=== PATIENT | male | born 1975 | race Caucasian/White ===

== ENCOUNTER → 2021-03-04 09:27 | Outpatient (CLI) | payer SELFPAY ==
[2021-03-04 19:21] LABS: Alanine Aminotransferase 26 IU/L (<50); Albumin 4.6 g/dL (3.5-5.0); Albumin Globulin Ratio 1.5 (1.0-2.8); Alkaline Phosphatase 59 U/L (38-126); Aspartate Aminotransferase 27 IU/L (17-59); BUN Creatinine Ratio 19.3 (6-22); Bilirubin Total 0.6 mg/dL (0.2-1.3); Blood Urea Nitrogen 16 mg/dL (9-20); Calcium 9.8 mg/dL (8.4-10.2); Carbon Dioxide 30 mmol/L (22-32); Chloride 102 mmol/L (98-107); Cholesterol 286 mg/dL (140-199); Estimated Glomerular Filt Rate > 60.0 mL/min (>60); Glucose 95 mg/dL (70-100); HDL Cholesterol 40 mg/dL (40-60); HEMOLYSIS < 15 (0-50); LDL Cholesterol Calculated 197 mg/dL (<100); Potassium 4.6 mmol/L (3.4-5.1); Sodium 140 mmol/L (137-145); Total Protein 7.6 g/dL (6.3-8.2); Triglycerides 246 mg/dL (35-150)
[2021-03-04 19:33] LABS: Hematocrit 42.5 % (41-53); Hemoglobin 14.5 g/dL (13.5-17.5); Mean Corpuscular HGB Conc 34.2 % (30-36); Mean Corpuscular Hemoglobin 30.6 PG (26-34); Mean Corpuscular Volume 89.4 fL (80-100); Platelet Count 338 X10^3/uL (150-400); Red Blood Cell Count 4.75 X10^6/uL (4.5-5.9); Red Cell Distribution Width 13.2 % (11.6-14.8); White Blood Cell Count 6.4 X10^3/uL (4.5-11.0)
[2021-03-04 19:39] LABS: Add Manual Diff / Slide Review YES
[2021-03-04 20:09] LABS: Neutrophils Absolute Manual 3456 /uL (3000-5900); RBC Morphology Normal Morphology; Total Cells Counted 100
== END ==
PROVIDERS: PCP Family Medicine; Visit Provider Family Medicine
DX: E78.5 Hyperlipidemia, unspecified (principal); F32.A Depression, unspecified; J45.30 Mild persistent asthma, uncomplicated
CPT/HCPCS: 80053; 80061; 85007; 85025

== ENCOUNTER → 2022-06-04 12:58 | Outpatient (CLI) | payer OTHER, SELFPAY ==
[2022-06-04 19:10] LABS: Add Manual Diff / Slide Review NO; Basophils Absolute Auto 100 /uL (0-100); Basophils Percent Auto 1.2 % (0-2); Eosinophils Absolute Auto 300 /uL (0-450); Eosinophils Percent Auto 4.8 % (2-4); Hematocrit 41.8 % (41-53); Hemoglobin 14.3 g/dL (13.5-17.5); Lymphocytes Absolute Auto 2000 /uL (1100-4500); Lymphocytes Percent Auto 32.8 % (25-40); Mean Corpuscular HGB Conc 34.1 % (30-36); Mean Corpuscular Hemoglobin 30.9 PG (26-34); Mean Corpuscular Volume 90.5 fL (80-100); Monocytes Absolute Auto 400 /uL (0-900); Neutrophils Absolute Auto 3400 /uL (1500-7000); Neutrophils Percent Auto 55.2 % (50-75); Platelet Count 348 X10^3/uL (150-400); Red Blood Cell Count 4.62 X10^6/uL (4.5-5.9); White Blood Cell Count 6.1 X10^3/uL (4.5-11.0)
[2022-06-04 19:19] LABS: Alanine Aminotransferase 30 IU/L (<50); Albumin 4.3 g/dL (3.5-5.0); Albumin Globulin Ratio 1.3 (1.0-2.8); Alkaline Phosphatase 52 U/L (38-126); Aspartate Aminotransferase 35 IU/L (17-59); Bilirubin Total 0.4 mg/dL (0.2-1.3); Blood Urea Nitrogen 20 mg/dL (9-20); Calcium 9.1 mg/dL (8.4-10.2); Carbon Dioxide 30 mmol/L (22-32); Chloride 101 mmol/L (98-107); Cholesterol 212 mg/dL (140-199); Estimated Glomerular Filt Rate > 60 mL/min (>60); Globulin 3.2 g/dL (1.7-4.1); Glucose 93 mg/dL (70-100); HDL Cholesterol 40 mg/dL (40-60); HEMOLYSIS < 15 (0-50); LDL Cholesterol Calculated 143 mg/dL (<100); Potassium 4.7 mmol/L (3.4-5.1); Sodium 139 mmol/L (137-145); Total Protein 7.5 g/dL (6.3-8.2); Triglycerides 145 mg/dL (35-150)
[2022-06-04 19:48] LABS: TSH w/ Reflex to FT4 0.75 uIU/mL (0.47-4.68)
== END ==
PROVIDERS: PCP Family Medicine; Visit Provider Physician Assistant Medical
DX: B00.1 Herpesviral vesicular dermatitis (principal); E78.5 Hyperlipidemia, unspecified; F32.89 Other specified depressive episodes; J45.30 Mild persistent asthma, uncomplicated; J45.40 Moderate persistent asthma, uncomplicated; J45.909 Unspecified asthma, uncomplicated
CPT/HCPCS: 80053; 80061; 84443; 85025

== ENCOUNTER → 2022-08-24 10:41 | Outpatient (CLI) | payer OTHER, SELFPAY ==
[2022-08-24 19:31] LABS: Add Manual Diff / Slide Review NO; Basophils Absolute Auto 100 /uL (0-100); Basophils Percent Auto 1.1 % (0-2); Eosinophils Absolute Auto 600 /uL (0-450); Eosinophils Percent Auto 8.1 % (2-4); Hematocrit 39.5 % (41-53); Hemoglobin 13.7 g/dL (13.5-17.5); Lymphocytes Absolute Auto 2200 /uL (1100-4500); Lymphocytes Percent Auto 29.5 % (25-40); Mean Corpuscular HGB Conc 34.7 % (30-36); Mean Corpuscular Hemoglobin 31.2 PG (26-34); Mean Corpuscular Volume 89.7 fL (80-100); Monocytes Absolute Auto 500 /uL (0-900); Monocytes Percent Auto 6.2 % (3-14); Neutrophils Absolute Auto 4100 /uL (1500-7000); Neutrophils Percent Auto 55.1 % (50-75); Platelet Count 325 X10^3/uL (150-400); Red Blood Cell Count 4.41 X10^6/uL (4.5-5.9); Red Cell Distribution Width 13.7 % (11.6-14.8); White Blood Cell Count 7.3 X10^3/uL (4.5-11.0)
[2022-08-24 19:50] LABS: BUN Creatinine Ratio 17.9 (6-22); Blood Urea Nitrogen 14 mg/dL (9-20); Calcium 9.2 mg/dL (8.4-10.2); Carbon Dioxide 32 mmol/L (22-32); Chloride 102 mmol/L (98-107); Cholesterol 219 mg/dL (140-199); Estimated Glomerular Filt Rate > 60 mL/min (>60); Glucose 99 mg/dL (70-100); HDL Cholesterol 47 mg/dL (40-60); HEMOLYSIS < 15 (0-50); LDL Cholesterol Calculated 134 mg/dL (<100); Potassium 5.1 mmol/L (3.4-5.1); Sodium 139 mmol/L (137-145); Triglycerides 192 mg/dL (35-150)
== END ==
PROVIDERS: PCP Family Medicine; Visit Provider Family Medicine
DX: E78.2 Mixed hyperlipidemia (principal); R40.0 Somnolence
CPT/HCPCS: 80048; 80061; 85025

== ENCOUNTER → 2022-10-01 09:09 | Outpatient (CLI) | payer OTHER, SELFPAY ==
[2022-10-01 19:36] LABS: HEMOLYSIS < 15 (0-50); Iron 64 ug/dL (49-181)
[2022-10-01 19:38] LABS: Cholesterol 181 mg/dL (140-199); HDL Cholesterol 52 mg/dL (40-60); LDL Cholesterol Calculated 100 mg/dL (<100); Triglycerides 147 mg/dL (35-150)
[2022-10-01 19:43] LABS: Add Manual Diff / Slide Review NO; Basophils Absolute Auto 100 /uL (0-100); Basophils Percent Auto 1.1 % (0-2); Eosinophils Absolute Auto 800 /uL (0-450); Eosinophils Percent Auto 9.9 % (2-4); Hematocrit 40.4 % (41-53); Hemoglobin 13.8 g/dL (13.5-17.5); Lymphocytes Absolute Auto 2400 /uL (1100-4500); Lymphocytes Percent Auto 29.4 % (25-40); Mean Corpuscular HGB Conc 34.1 % (30-36); Monocytes Absolute Auto 600 /uL (0-900); Neutrophils Absolute Auto 4300 /uL (1500-7000); Neutrophils Percent Auto 52.6 % (50-75); Platelet Count 317 X10^3/uL (150-400); Red Blood Cell Count 4.44 X10^6/uL (4.5-5.9); White Blood Cell Count 8.2 X10^3/uL (4.5-11.0)
[2022-10-01 19:50] LABS: Percent Iron Saturation 20 % (20-50); Total Iron Binding Capacity 325 ug/dL (261-462); Transferrin 243 mg/dL (206-381)
[2022-10-01 20:23] LABS: Vitamin B12 396 pg/mL (239-931)
== END ==
PROVIDERS: PCP Family Medicine; Visit Provider Family Medicine
DX: D64.9 Anemia, unspecified (principal); E78.2 Mixed hyperlipidemia
CPT/HCPCS: 80061; 82607; 83540; 83550; 85025

== ENCOUNTER 2023-03-09 07:30 | Day surgery (SDC) | payer OTHER, SELFPAY ==
[2023-03-09] VITALS (7 sets, daily range): BP systolic 118–142; BP diastolic 74–100; PULSE 73–93; RESP 10–16; TEMP 36.4–36.7; O2SAT 90–97; BMI 27.2
--- NOTE | 2023-03-09 | PATH_ITS ---
[facility] Accession Number: [id number] No. of containers..02 Tissue . 01 Material submitted: . PART A: colon - DESCENDING COLON POLYP PART B: colon - ASCENDING COLON POLYP . 01 Diagnosis: A. COLON, DESCENDING, POLYP BIOPSY: - TUBULAR ADENOMA -- B. COLON, ASCENDING, POLYP BIOPSY: - BENIGN COLONIC MUCOSA WITH LARGE SUBMUCOSAL FIBROTIC NODULE WITH HISTOLOGIC ELEMENTS SUGGESTIVE OF REMOTE PARASITIC INFECTION. - SEE COMMENT. --- COMMENT: There is large submucosal fibrotic nodule with central nondescript elements, these elements have a thick wall with serration and central necrotic materials. Overall, it is suspicious for parasitic infection, and unable to confirm and classify given the lack of viable fragments. Correlation with patient's history and fecal microbiology test might be helpful for further investigation. -- AFB, and GMS special stains are performed and are negative for mycobacterial and fungal elements. Technical Note: The immunohistochemical stains reported were performed at [facility] ([address], [facility] [address]). They were developed and their performance characteristics determined by [employer]. They have not been cleared or approved by the U.S. Food and Drug Administration, although such approval is not required for analyte-specific reagents of this type. TXN 03/17/2023 1735 [facility] . 01 Electronically signed: . Celina Gagnon MD, Pathologist NPI- [id number] . 01 Gross description: . Part A: DESCENDING COLON POLYP: Received in formalin is 1 fragment(s) of rangel, soft tissue measuring 0.7 x 0.4 x 0.2 cm submitted entirely in 1 cassette(s) Part B: ASCENDING COLON POLYP: Received in formalin are 2 fragment(s) of rangel, soft tissue measuring 0.2 x 0.2 x 0.1 cm to 0.8 x 0.7 x 0.7 cm submitted entirely in 1 cassette(s) /FRANCINE 03/10/2023 2303 [facility] . 01 Pathologist provided ICD-10: Z12.11 . 01 CPT . 490953, 144414, 296156, 067506 Specimen Comment: A courtesy copy of this report has been sent to [phone] Performed at: 01 [facility] [address] [place] [address] [id number] MD Nate Grande MD Phone: [phone]
[2023-03-09] MEDS: LACTATED RINGERS 1,000 ML 150 ML IV (07:50)
--- NOTE | 2023-03-09 08:03 | PM.HP.1 ---
History of Present Illness History of Present Illness Date Patient Seen: 03/09/23 Chief complaint: Colonoscopy Narrative: 47-year-old man here for screening colonoscopy. Father developed colon cancer age 63. No previous colonoscopy. No abdominal concerns unintentional weight loss blood per. PFSH Medical History Recurrent cold sores Screening for prostate cancer Screening for lipid disorders Screening for diabetes mellitus Encounter for assessment of STD exposure Former smoker Penile lesion Encounter for general adult medical examination w/o abnormal findings Encounter for smoking cessation counseling Social History household members: none Smoking Status: Former smoker alcohol intake: never Meds Home Medications and Allergies Home Medications Medication Instructions Recorded Confirmed Type sodium,potassium,mag sulfates 17.5 See Rx Instructions PO .COMPLEX 12/17/22 03/09/23 Rx gram-3.13 gram-1.6 gram oral soln #354 mL (Suprep Bowel Prep Kit) atorvastatin 10 mg tablet 10 mg PO QPM #90 tabs 01/04/23 03/09/23 Rx escitalopram oxalate 20 mg tablet See Rx Instructions .Route 01/04/23 03/09/23 Rx .COMPLEX #90 tabs albuterol sulfate 5 mg/mL(0.5 %) 5 mg inhalation Q6H PRN asthma 01/06/23 03/09/23 Rx solution for nebulization #100 mL montelukast 10 mg tablet 10 mg PO DAILY #90 tabs 01/07/23 03/09/23 Rx fluticasone propionate 100 2 inh inhalation BID #60 ea 02/08/23 03/09/23 Rx mcg/actuation blister powder for inhalation (Flovent Diskus) albuterol sulfate 90 mcg/actuation 2 puff inhalation Q6H PRN 02/10/23 03/09/23 Rx aerosol inhaler shortness of breath or wheezing #1 ea fluticasone 250 mcg-salmeterol 50 1 inh inhalation BID #60 ea 02/10/23 03/09/23 Rx mcg/dose blistr powdr for inhalation (Advair Diskus) Allergies Allergy/AdvReac Type Severity Reaction Status Date / Time No Known Drug Allergies Allergy Verified 01/20/23 15:33 Exam Vital Signs (past 8 hours): - 03/09/23 07:37 Temperature 98.1 F Pulse Rate 93 H Respiratory Rate 16 Blood Pressure 142/100 H Pulse Oximetry 95 Oxygen Delivery Method Room Air Oxygen Delivery Method Room Air Narrative Exam Narrative: General adult man alert oriented no acute distress Chest nonlabored respiration Extremities warm well perfused Assessment & Plan Assessment and plan (1) Family history of colon cancer: Status: Acute Assessment & Plan narrative: The patient requires colorectal screening and colonoscopy is recommended. Technical details were discussed. Risks, benefits, alternatives explained. Risks including but not limited to myocardial infarction, aspiration, bleeding, pain, missed lesion, incomplete examination, need for further radiographic studies, colonic perforation, and need for major abdominal surgery were discussed. All questions were answered to their satisfaction, and they are in agreement with this plan.
--- NOTE | 2023-03-09 08:06 | P.OP.COLON_ITS ---
Operative Date/Time/Diagnoses Date of procedure: 03/09/23 Time of procedure: 08:06 Pre-op diagnosis: Family history of colon cancer Post-op diagnosis: other (Colonic polyps x2) Procedure & Clinicians Study performed: Colonoscopy and polypectomy. Same procedure as scheduled: Yes Indications: Colorectal screening Family history of colon cancer Surgeon: Bennie Newton Procedure Notes Procedure in detail: The history and physical was performed/updated and the patient is ASA class is 2. The procedure was discussed in detail with the patient. Potential risks complications including infection, bleeding, missed diagnosis, perforation, need for surgery, and were explained. Their questions were answered and informed consent was obtained. Patient was brought to the procedure room and placed standard monitoring equipment. The patient's vital signs were monitored continuously throughout the entire procedure. Prior to starting time-out was performed. The patient was placed in the left lateral recumbent position. Procedural sedation was administered by anesthesia. Examination began with a thorough inspection of the perianal area there was no evidence of fissures, fistulae, external hemorrhoids or cutaneous malignancy. The colonoscopy scope was then placed into the anal canal and was advanced to the cecum, which was identified by the ileocecal valve, the appendiceal orifice and the confluence of the taenia. The scope was then slowly withdrawn examining colon thoroughly in all directions, irrigating it of any residual stool. The scope was retroflexed within the rectum The patient tolerated the procedure well. They will be discharged once criteria are met. The prep was of good/excellent quality. The withdrawl time was 7 minutes. FINDINGS * Descending colon 3 mm polyp removed with biopsy forceps * Ascending colon 8 mm polyp which appears to have some calcification associated with it removed with hot snare after cold snare was unsuccessful. * Rectum grade 1 internal hemorrhoids Specimen(s): other (Ascending and descending colonic polyps) Impression: Colonic polyps x2 Post-procedure Plan for aftercare: Follow-up is dependent on pathology findings, at minimum needs repeat 5 years Disposition: same day surgery
[2023-03-09] MEDS: ALBUTEROL 2.5 MG/3 ML NEB (ADULT) INH (08:52)
== END 2023-03-09 09:48 | disposition home or self-care (01) ==
PROVIDERS: PCP Family Medicine; Referring Provider Surgery; Visit Provider Surgery
PROC: 0DJD8ZZ Inspection of Lower Intestinal Tract, Via Natural or Artificial Opening Endoscopic (ICD-10-PCS; CPT 45378; principal; 2023-03-09 08:15)
DX: Z12.11 Encounter for screening for malignant neoplasm of colon (principal); Z80.0 Family history of malignant neoplasm of digestive organs; K64.0 First degree hemorrhoids; D12.4 Benign neoplasm of descending colon
CPT/HCPCS: 45385; 45380; J2704; J7613

== ENCOUNTER 2023-05-02 15:00 | Observation (INO) | payer OTHER, SELFPAY ==
[2023-05-02] VITALS (14 sets, daily range): BP systolic 91–139; BP diastolic 55–69; PULSE 84–106; RESP 18–26; TEMP 36.4–37.2; O2SAT 88–97; BMI 27.2
--- NOTE | 2023-05-02 15:10 | DI.RAD.S_ITS ---
PROCEDURE: XR CHEST 1V INDICATIONS: Short of breath, asthma, +wheeze, recent fever, ? covid TECHNIQUE: One view of the chest was acquired. COMPARISON: [facility] ([place]), CR, XR CHEST 2V, 01/07/2023, 10:22. FINDINGS: Surgical changes and devices: None. Lungs and pleura: On this semiupright portable chest examination, no large pneumothorax or large pleural effusions are seen. No focal infiltrates are seen. Mediastinum: Mediastinal contours appear normal. Heart size is normal. Bones and chest wall: No suspicious bony lesions. There is a chronic fracture of the right mid clavicle. Overlying soft tissues appear unremarkable. IMPRESSION: No acute cardiopulmonary abnormality is seen. No focal infiltrates are seen. If there is clinical concern for a developing pulmonary process, a short-term followup chest series (with PA and lateral views, performed in deep inspiration) is suggested for further evaluation. Stable right mid clavicle fracture. Dictated by: Huang Vizcarra M.D. on 05/02/2023 at 14:37 Approved by: Huang Vizcarra M.D. on 05/02/2023 at 14:38
[2023-05-02] MEDS: ALBUTEROL 2.5 MG/3 ML NEB (ADULT) 20 MG INH (15:15)
--- NOTE | 2023-05-02 15:17 | ED_ITS ---
HPI - SOB/Dyspnea General Chief Complaint: Shortness of Breath/Dyspnea Stated Complaint: SOB Hx Asthma Time Seen by Provider: 05/02/23 15:03 Source: patient, EMS, RN notes reviewed and old records reviewed Mode of arrival: EMS Limitations: no limitations History of Present Illness HPI Narrative: 47-year-old male with history of dyslipidemia, asthma on Advair daily and montelukast. Patient states he has been doing well a couple days ago he started to get fever, cough and had significant shortness of breath that started today. Patient states he would 1 out of his albuterol inhaler but did have his nebulizer. He tried a nebulizer this morning without any improvement. He does use his Advair every day. Patient is also on montelukast daily. Has had 1 prior hospitalization in the fall for asthma exacerbation has never been intubated or required BiPAP. Patient states he had fevers up to 102 this morning. Nasal congestion, some headache, no chest pain or pressure but felt short of breath. He received 40 mg of dexamethasone, Atrovent and 2 albuterol nebs EN route as well as Zofran. Patient states he feels much improved but continues to have wheeze on examination. Patient and airlift state that his work of breathing has significantly improved. Patient is also requiring O2 4 L for airlift still after interventions. Patient states no nausea or vomiting, no diarrhea or constipation, no urinary symptoms. No new swelling in extremities. Denies any allergies to medications. No prior surgeries. Quit smoking in 2019. Occasional alcohol, does use marijuana. Denies recreational drugs otherwise. Lives in [facility]. Related Data Previous Rx's Medication Instructions Recorded escitalopram oxalate 20 mg tablet See Rx Instructions .Route 01/04/23 .COMPLEX #90 tabs albuterol sulfate 5 mg/mL(0.5 %) 5 mg inhalation Q6H PRN asthma 01/06/23 solution for nebulization #100 mL montelukast 10 mg tablet 10 mg PO DAILY #90 tabs 01/07/23 fluticasone propionate 100 2 inh inhalation BID #60 ea 02/08/23 mcg/actuation blister powder for inhalation (Flovent Diskus) albuterol sulfate 90 mcg/actuation 2 puff inhalation Q6H PRN 02/10/23 aerosol inhaler shortness of breath or wheezing #1 ea fluticasone 250 mcg-salmeterol 50 1 inh inhalation BID #60 ea 02/10/23 mcg/dose blistr powdr for inhalation (Advair Diskus) atorvastatin 10 mg tablet 10 mg PO QPM #90 tabs 03/12/23 Allergies Allergy/AdvReac Type Severity Reaction Status Date / Time No Known Drug Allergies Allergy Verified 01/20/23 15:33 Review of Systems Review of Systems ROS Unobtainable: All systems reviewed & are unremarkable except as noted in HPI and below Patient History Medical History Recurrent cold sores Screening for prostate cancer Screening for lipid disorders Screening for diabetes mellitus Encounter for assessment of STD exposure Former smoker Penile lesion Encounter for general adult medical examination w/o abnormal findings Encounter for smoking cessation counseling Social History household members: none Smoking Status: Former smoker alcohol intake: never Smoking Status: Former smoker Substance Use Type: does not use Exam Narrative Exam Narrative: GEN: well nourished male, alert and oriented x 3, patient appears to be in moderate distress. HEENT: Atraumatic, pupils are equal round reactive to light, extraocular movements are intact, nares congestion bilaterally, there is no conjunctival pallor. Throat is clear without any exudates, erythema, tonsillar enlargement or uvular deviation HEART: Regular rate and rhythm without murmur, clicks, rubs. Pulses are equal in upper and lower extremities LUNGS:Lungs bilateral inspiratory and expiratory wheezes, p mild tachypnea. Atient does have good air movement, no crackles or rales noted. No rhonchi. Patient can speak in full sentences. Does have nasal cannula in place on 4 L currently. Mild RAUL use but no intercostal or subcostal. ABD:bowel sounds normal, soft, non-tender, no guarding, rebound, rigidity, no masses noted, no hepatosplenomegaly :No CVA tenderness MSCL: Non-tender, no muscle atrophy, muscles strength 5/5 upper and lower extremities, full range of motion, normal gait NEURO:CN 2-12 intact, sensation normal SKIN: No rash, erythema or other skin changes noted. Initial Vital Signs Initial Vital Signs: Vital Signs Temperature 98 F 05/02/23 15:11 Pulse Rate 100 H 05/02/23 15:11 Respiratory Rate 26 H 05/02/23 15:11 Blood Pressure 126/62 05/02/23 15:11 Pulse Oximetry 94 05/02/23 15:11 Oxygen Delivery Method Nasal Cannula 05/02/23 15:11 Oxygen Flow Rate 4 05/02/23 15:11 Course Orders Ordered: ED Orders 05/02/23 13:10 Respiratory Panel (Film Array) Stat 05/02/23 15:10 Chest [XR chest 1V] Stat 05/02/23 15:30 BNP [NT-proBNP (BNP-Adult 18+)] Stat CBC Auto Diff [Complete Blood Count AUTO DIFF] Stat CMP [Comprehensive Metabolic Panel] Stat Lipase Stat Troponin & CK Cardiac Panel Stat Magnesium Sulfate (Magnesium Sulfate) 2 gm in 50 mls @ 25 mls/hr IV NOW ONE Stop: 05/02/23 19:07 Last Admin: 05/02/23 17:22 Dose: 25 mls/hr Discontinued Medications Albuterol (Albuterol 2.5 Mg/3 Ml Neb (Adult)) 20 mg INH NOW ONE Stop: 05/02/23 15:11 Last Admin: 05/02/23 15:15 Dose: 20 mg Documented By: COBY Sodium Chloride (Normal Saline 0.9%) 1,000 mls @ 1,000 mls/hr IV BOLUS ONE Stop: 05/02/23 16:09 Last Infusion: 05/02/23 16:27 Dose: Infused Documented By: Admin: 05/02/23 15:27 Dose: 1,000 mls/hr Documented By: LIANA Methylprednisolone (Methylprednisolone 125 Mg/2 Ml Vial) 125 mg IV NOW ONE Stop: 05/02/23 15:11 Last Admin: 05/02/23 15:27 Dose: 125 mg Documented By: LIANA Vital Signs Vital signs: Vital Signs - 8 hr 05/02/23 15:11 05/02/23 15:14 05/02/23 15:21 Temperature 98 F Pulse Rate 100 H 101 H Respiratory Rate 26 H Blood Pressure 126/62 Pulse Oximetry 94 92 93 Oxygen Delivery Method Nasal Cannula Nasal Cannula Oxygen Flow Rate 4 3 05/02/23 15:30 05/02/23 15:34 05/02/23 15:34 Temperature Pulse Rate 95 H 101 H Respiratory Rate Blood Pressure 91/58 L Pulse Oximetry 97 95 Oxygen Delivery Method Oxygen Flow Rate 05/02/23 15:59 05/02/23 16:00 05/02/23 16:00 Temperature Pulse Rate 101 H 103 H Respiratory Rate Blood Pressure 125/60 Pulse Oximetry 96 96 Oxygen Delivery Method Nasal Cannula Oxygen Flow Rate 4 05/02/23 16:30 05/02/23 16:30 05/02/23 16:54 Temperature Pulse Rate 106 H Respiratory Rate Blood Pressure 139/61 Pulse Oximetry 93 88 L Oxygen Delivery Method Room Air Oxygen Flow Rate 05/02/23 16:55 Temperature Pulse Rate Respiratory Rate Blood Pressure Pulse Oximetry 92 Oxygen Delivery Method Nasal Cannula Oxygen Flow Rate 2 MDM - SOB/Dyspnea Lab Data 05/02/23 15:30 05/02/23 15:30 Labs: Lab Results 05/02/23 05/02/23 Range/Units 13:10 15:30 WBC 7.5 (4.5-11.0) X10^3/uL RBC 4.20 L (4.5-5.9) X10^6/uL Hgb 13.0 L (13.5-17.5) g/dL Hct 37.7 L (41-53) % MCV 89.7 (80-100) fL MCH 30.9 (26-34) PG MCHC 34.5 (30-36) % RDW 14.5 (11.6-14.8) % Plt Count 226 (150-400) X10^3/uL Neut % (Auto) 92.0 H (50-75) % Lymph % (Auto) 3.6 L (25-40) % [place] % (Auto) 3.7 (3-14) % Eos % (Auto) 0.1 L (2-4) % Baso % (Auto) 0.6 (0-2) % Neut # (Auto) 6900 (2351-3516) /uL Lymph # (Auto) 300 L (4243-9683) /uL [place] # (Auto) 300 (0-900) /uL Eos # (Auto) 0 (0-450) /uL Baso # (Auto) 0 (0-100) /uL Sodium 137 (137-145) mmol/L Potassium 3.4 (3.4-5.1) mmol/L Chloride 101 (98-107) mmol/L Carbon Dioxide 23 (22-32) mmol/L BUN 16 (9-20) mg/dL Creatinine 0.68 (0.66-1.25) mg/dL Estimated GFR > 60 (>60) mL/min BUN/Creatinine Ratio 23.5 H (6-22) Glucose 130 H (70-100) mg/dL Calcium 9.3 (8.4-10.2) mg/dL Total Bilirubin 0.6 (0.2-1.3) mg/dL AST 44 (17-59) IU/L ALT 43 (<50) IU/L Alkaline Phosphatase 52 (38-126) U/L Total Creatine Kinase 282 H (55-170) U/L Troponin I < 0.012 (0.01-0.034) ng/mL NT-Pro-B Natriuret Pep 115 (<125) pg/mL Total Protein 7.9 (6.3-8.2) g/dL Albumin 4.6 (3.5-5.0) g/dL Globulin 3.3 (1.7-4.1) g/dL Albumin/Globulin Ratio 1.4 (1.0-2.8) Lipase 41 (23-300) U/L Chlamy pneumoniae PCR Not detected (Not Detect) Adenovirus (PCR) Not detected (Not Detect) B.parapertussis DNA PCR Not detected (Not Detecte) Coronavirus OC43 (PCR) Not detected (Not Detect) Coronavirus HKU1 (PCR) Not detected (Not Detect) Coronavirus 229E (PCR) Not detected (Not Detect) SARS-CoV-2 (PCR) Not detected (Not Detecte) Coronavirus NL63 (PCR) Not detected (Not Detect) Human Metapneumovir PCR Not detected (Not Detect) Influenza Type A (PCR) Not detected (Not Detect) Influenza Type B (PCR) Not detected (Not Detect) M. pneumoniae (PCR) Not detected (Not Detect) Parainfluenza 1 (PCR) Not detected (Not Detect) Parainfluenza 2 (PCR) Not detected (Not Detect) Parainfluenza 3 (PCR) Not detected (Not Detect) Parainfluenza 4 (PCR) Not detected (Not Detect) RSV (PCR) Not detected (Not Detect) Entero/Rhino (PCR) Detected H (Not Detect) Imaging Data Chest x-ray: Radiologist's Impression: [address] [address] XRay Report Signed Patient: Lighthill,Morris Chapel MR#: [id number] : 1975 Acct:[id number] Age/Sex: 47 / M Date of Service: 05/02/23 Loc: ED Accession Number: [id number] Procedure: XR chest 1V Ordering Provider: Hannah Dc D.O. PROCEDURE: XR CHEST 1V INDICATIONS: Short of breath, asthma, +wheeze, recent fever, ? covid TECHNIQUE: One view of the chest was acquired. COMPARISON: [facility] ([place]), CR, XR CHEST 2V, 01/07/2023, 10:22. FINDINGS: Surgical changes and devices: None. Lungs and pleura: On this semiupright portable chest examination, no large pneumothorax or large pleural effusions are seen. No focal infiltrates are seen. Mediastinum: Mediastinal contours appear normal. Heart size is normal. Bones and chest wall: No suspicious bony lesions. There is a chronic fracture of the right mid clavicle. Overlying soft tissues appear unremarkable. IMPRESSION: No acute cardiopulmonary abnormality is seen. No focal infiltrates are seen. If there is clinical concern for a developing pulmonary process, a short-term followup chest series (with PA and lateral views, performed in deep inspiration) is suggested for further evaluation. Stable right mid clavicle fracture. Dictated by: Huang Vizcarra M.D. on 05/02/2023 at 14:37 Approved by: Huang Vizcarra M.D. on 05/02/2023 at 14:38 MDM Narrative Medical decision making narrative: 47-year-old male with history of asthma patient has had recent viral syndrome with fevers, nasal congestion and sudden onset of shortness of breath today. Patient is quite wheezy on examination. Suspect patient has viral syndrome causing asthma exacerbation. Patient received dexamethasone and 1 Atrovent 2 albuterol EN route. He is still quite wheezy also still O2 dependent. His work of breathing has performed significantly according to airlift as well as the patient himself. He still slightly tachycardic and tachypneic. Plan for Solu-Medrol 125 mg, 20 mg of albuterol and recheck Labs white count hemoglobin of 13 consistent with priors, platelet 226 with leftward shift. Chest x-ray no acute change EKG Respiratory panel positive for enter/rhinovirus. Patient had 20 mg albuterol, patient wheeze has since resolved. Work of breathing continues to be improved. After immediately turned off was 92% but quickly dip down to 88%. Spoke with Dr. Walter who accepts for admission. On recheck patient is a bit of mild wheeze again. His work of breathing has not increased he still continues to feel improved but is requiring at least 2 to 3 L nasal cannula. We will give dose of Mag 2 g. Plan for albuterol/Atrovent regular intervals. Critical Care Time Critical Care Time Critical Care Time: Yes Total Critical Care Time: 25 Attestation: The high probability of a clinically significant, sudden or life threatening deterioration of the [cardiac, pulm] system(s) required my full and direct attention, intervention and personal management. The aggregate critical care time was [] minutes. This time is in addition to time spent performing reported procedures but includes the following: [x] Data Review and interpretation [x] Patient assessment and monitoring of vital signs [x] Documentation [x] Medication orders and management Discharge Plan Departure Patient Disposition: Admitted as Observation Clinical Impression: Enterovirus infection, Acute asthma exacerbation, Acute hypoxemic respiratory failure Admit Date/Time: 05/02/23 17:04 Admit Provider: Mikie Walter
[2023-05-02] MEDS: SODIUM CHLORIDE 0.9% 1,000 ML 1000 ML IV (15:27)
[2023-05-02] MEDS: methylPREDNISolone 125 MG/2 ML VIAL IV (15:27)
[2023-05-02 15:41] LABS: Add Manual Diff / Slide Review NO; Basophils Absolute Auto 0 /uL (0-100); Basophils Percent Auto 0.6 % (0-2); Eosinophils Absolute Auto 0 /uL (0-450); Eosinophils Percent Auto 0.1 % (2-4); Hematocrit 37.7 % (41-53); Lymphocytes Absolute Auto 300 /uL (1100-4500); Lymphocytes Percent Auto 3.6 % (25-40); Mean Corpuscular HGB Conc 34.5 % (30-36); Mean Corpuscular Hemoglobin 30.9 PG (26-34); Mean Corpuscular Volume 89.7 fL (80-100); Monocytes Absolute Auto 300 /uL (0-900); Monocytes Percent Auto 3.7 % (3-14); Neutrophils Absolute Auto 6900 /uL (1500-7000); Platelet Count 226 X10^3/uL (150-400); Red Cell Distribution Width 14.5 % (11.6-14.8); White Blood Cell Count 7.5 X10^3/uL (4.5-11.0)
[2023-05-02 15:58] LABS: Alanine Aminotransferase 43 IU/L (<50); Albumin 4.6 g/dL (3.5-5.0); Albumin Globulin Ratio 1.4 (1.0-2.8); Alkaline Phosphatase 52 U/L (38-126); Aspartate Aminotransferase 44 IU/L (17-59); BUN Creatinine Ratio 23.5 (6-22); Bilirubin Total 0.6 mg/dL (0.2-1.3); Blood Urea Nitrogen 16 mg/dL (9-20); Calcium 9.3 mg/dL (8.4-10.2); Carbon Dioxide 23 mmol/L (22-32); Chloride 101 mmol/L (98-107); Creatine Kinase 282 U/L (55-170); Estimated Glomerular Filt Rate > 60 mL/min (>60); Globulin 3.3 g/dL (1.7-4.1); Glucose 130 mg/dL (70-100); HEMOLYSIS < 15 (0-50); Lipase 41 U/L (23-300); Potassium 3.4 mmol/L (3.4-5.1); Sodium 137 mmol/L (137-145); Total Protein 7.9 g/dL (6.3-8.2)
[2023-05-02 16:09] LABS: Adenovirus Not Detected (Not Detect); B. parapertussis Not Detected (Not Detecte); Bordetella pertussis Not Detected (Not Detect); Chlamydophila pneumoniae Not Detected (Not Detect); Coronavirus 229E Not Detected (Not Detect); Coronavirus HKU1 Not Detected (Not Detect); Coronavirus NL 63 Not Detected (Not Detect); Coronavirus OC43 Not Detected (Not Detect); Human Metapneumovirus Not Detected (Not Detect); Human Rhinovirus/Enterovirus Detected (Not Detect); Influenza A Not Detected (Not Detect); Influenza B Not Detected (Not Detect); Mycoplasma pneumoniae Not Detected (Not Detect); Parainfluenza Virus 1 Not Detected (Not Detect); Parainfluenza Virus 2 Not Detected (Not Detect); Parainfluenza Virus 3 Not Detected (Not Detect); Parainfluenza Virus 4 Not Detected (Not Detect); Respiratory Syncytial Virus Not Detected (Not Detect); SARS- CoV-2 Not Detected (Not Detecte)
[2023-05-02 16:10] LABS: NT-proBNP (BNP-Adult 18+) 115 pg/mL (<125); Troponin I < 0.012 ng/mL (0.01-0.034)
--- NOTE | 2023-05-02 17:06 | PC.NURSE ---
Bilateral inpiratory and expiratory wheezing has improved s/p neb tx. Pt able to speak in full sentences. Pt still requiring 2L NC. Pt o2 sat dropped to 88% while on RA trial. Pleaced back on 2L NC and pt now sating 92%. RR 22
[2023-05-02] MEDS: MAGNESIUM SULFATE 2 GM/50 ML PIGGYBACK IV (17:22)
--- NOTE | 2023-05-02 18:33 | P.HP_ITS ---
History of Present Illness History of Present Illness Date Patient Seen: 05/02/23 Chief complaint: SOB Hx Asthma Narrative: Pt is 47 yo male former smoker with hx asthma, dyslipidemia presents with difficulty breathing and wheezing x 24 hrs. Symptoms got worse this morning. No fevers or chills. Cough is non-productive. He ran out of his rescue inhaler but used his neb at home this AM without relief. He is compliant with Advair abd Singulair. At baseline poor control with requiring alb inhaler 4-6 times a day. He has never been intubated. He was hospitalized for a day last January for asthma exacerbation while traveling in [place]. He has had mild asthma since childhood but with sig worsening over the past 5 years. 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 Prior to Ed sats in mid 80's. Currently on HFNC. Received alb 20 mg and Solumedrol in ED and had been given dex by medics. Labs wnl except + PCR for entero/rhino virus. Neg COVID PCR. CXR personally reviewed and without infiltrate. He quit smoking in 2019, prev 1 ppd x 20 yrs. [facility] Medical History Recurrent cold sores Screening for prostate cancer Screening for lipid disorders Screening for diabetes mellitus Encounter for assessment of STD exposure Former smoker Penile lesion Encounter for general adult medical examination w/o abnormal findings Encounter for smoking cessation counseling Social History household members: none Smoking Status: Former smoker alcohol intake: never Meds Home Medications and Allergies Home Medications Medication Instructions Recorded Confirmed Type escitalopram oxalate 20 mg tablet See Rx Instructions .Route 01/04/23 05/02/23 Rx .COMPLEX #90 tabs albuterol sulfate 5 mg/mL(0.5 %) 5 mg inhalation Q6H PRN asthma 01/06/23 05/02/23 Rx solution for nebulization #100 mL montelukast 10 mg tablet 10 mg PO DAILY #90 tabs 01/07/23 05/02/23 Rx fluticasone propionate 100 2 inh inhalation BID #60 ea 02/08/23 05/02/23 Rx mcg/actuation blister powder for inhalation (Flovent Diskus) albuterol sulfate 90 mcg/actuation 2 puff inhalation Q6H PRN 02/10/23 05/02/23 Rx aerosol inhaler shortness of breath or wheezing #1 ea fluticasone 250 mcg-salmeterol 50 1 inh inhalation BID #60 ea 02/10/23 05/02/23 Rx mcg/dose blistr powdr for inhalation (Advair Diskus) atorvastatin 10 mg tablet 10 mg PO QPM #90 tabs 03/12/23 05/02/23 Rx Allergies Allergy/AdvReac Type Severity Reaction Status Date / Time No Known Drug Allergies Allergy Verified 01/20/23 15:33 Exam Vital Signs (past 8 hours): - 05/02/23 15:11 05/02/23 15:14 05/02/23 15:21 Temperature 98 F Pulse Rate 100 H 101 H Respiratory Rate 26 H Blood Pressure 126/62 Pulse Oximetry 94 92 93 Oxygen Delivery Method Nasal Cannula Nasal Cannula Oxygen Flow Rate 4 3 05/02/23 15:30 05/02/23 15:34 05/02/23 15:34 Temperature Pulse Rate 95 H 101 H Respiratory Rate Blood Pressure 91/58 L Pulse Oximetry 97 95 Oxygen Delivery Method Oxygen Flow Rate 05/02/23 15:59 05/02/23 16:00 05/02/23 16:00 Temperature Pulse Rate 101 H 103 H Respiratory Rate Blood Pressure 125/60 Pulse Oximetry 96 96 Oxygen Delivery Method Nasal Cannula Oxygen Flow Rate 4 05/02/23 16:30 05/02/23 16:30 05/02/23 16:54 Temperature Pulse Rate 106 H Respiratory Rate Blood Pressure 139/61 Pulse Oximetry 93 88 L Oxygen Delivery Method Room Air Oxygen Flow Rate 05/02/23 16:55 05/02/23 18:15 05/02/23 18:20 Temperature 99.0 F Pulse Rate 101 H Respiratory Rate 19 Blood Pressure 116/69 Pulse Oximetry 92 92 Oxygen Delivery Method Nasal Cannula Nasal Cannula Oxygen Flow Rate 2 Oxygen Delivery Method Nasal Cannula Oxygen Flow Rate 2 Narrative Exam Narrative: Gen: currently after ED treatment alert, comfortable on HFNC HEENT: anicteric Neck: no enlarged LN Lungs: able to speak full sentences, bilat insp and exp wheeze CV: regular, no murmur Abd: soft, no HSM Ext: no edema Neuro: mentating well, speech and affect nl Objective Labs 05/02/23 15:30 05/02/23 15:30 Labs: Laboratory Results - last 24 hr 05/02/23 05/02/23 13:10 15:30 WBC 7.5 RBC 4.20 L Hgb 13.0 L Hct 37.7 L MCV 89.7 MCH 30.9 MCHC 34.5 RDW 14.5 Plt Count 226 Neut % (Auto) 92.0 H Lymph % (Auto) 3.6 L Callahan % (Auto) 3.7 Eos % (Auto) 0.1 L Baso % (Auto) 0.6 Neut # (Auto) 6900 Lymph # (Auto) 300 L Callahan # (Auto) 300 Eos # (Auto) 0 Baso # (Auto) 0 Sodium 137 Potassium 3.4 Chloride 101 Carbon Dioxide 23 BUN 16 Creatinine 0.68 Estimated GFR > 60 BUN/Creatinine Ratio 23.5 H Glucose 130 H Calcium 9.3 Total Bilirubin 0.6 AST 44 ALT 43 Alkaline Phosphatase 52 Total Creatine Kinase 282 H Troponin I < 0.012 NT-Pro-B Natriuret Pep 115 Total Protein 7.9 Albumin 4.6 Globulin 3.3 Albumin/Globulin Ratio 1.4 Lipase 41 Chlamy pneumoniae PCR Not detected Adenovirus (PCR) Not detected B.parapertussis DNA PCR Not detected Coronavirus OC43 (PCR) Not detected Coronavirus HKU1 (PCR) Not detected Coronavirus 229E (PCR) Not detected SARS-CoV-2 (PCR) Not detected Coronavirus NL63 (PCR) Not detected Human Metapneumovir PCR Not detected Influenza Type A (PCR) Not detected Influenza Type B (PCR) Not detected M. pneumoniae (PCR) Not detected Parainfluenza 1 (PCR) Not detected Parainfluenza 2 (PCR) Not detected Parainfluenza 3 (PCR) Not detected Parainfluenza 4 (PCR) Not detected RSV (PCR) Not detected Entero/Rhino (PCR) Detected H Assessment & Plan Assessment & Plan narrative: 1. Acute asthma exacerbation -+ entero/rhino virus PCR; no pneumonia on x-ray -cont HFNC -RT consult -Duoneb q4HWA -start prednisone 60 mg qd in AM 2. Dyslipidemia -cont atorvastatin 3. Depression/nxiety -cont escitalopram DVT prevention: enoxaprin
[2023-05-02] MEDS: ALBUTEROL/IPRATROPIUM 3 ML AMPUL INH (19:22)
[2023-05-02] MEDS: SODIUM CHLORIDE 0.9% FLUSH 10 ML IV (20:26)
[2023-05-02] MEDS: ATORVASTATIN 20 MG TABLET 10 MG PO (20:26)
[2023-05-03] VITALS (7 sets, daily range): BP systolic 110–115; BP diastolic 62–68; PULSE 78–95; RESP 16–22; TEMP 36.6–37; O2SAT 91–94
[2023-05-03] MEDS: ALBUTEROL/IPRATROPIUM 3 ML AMPUL INH ×3 (00:26→11:41)
[2023-05-03] MEDS: BUDESONIDE 0.5 MG/2 ML NEB INH (07:39)
[2023-05-03] MEDS: ENOXAPARIN 40 MG/0.4 ML SYRINGE SUBCUT (08:21)
[2023-05-03] MEDS: MONTELUKAST 10 MG TABLET PO (08:21)
[2023-05-03] MEDS: ESCITALOPRAM 10 MG TABLET PO (08:21)
[2023-05-03] MEDS: SODIUM CHLORIDE 0.9% FLUSH 10 ML IV (08:21)
[2023-05-03] MEDS: predniSONE 20 MG TABLET 60 MG PO (08:21)
--- NOTE | 2023-05-03 09:38 | P.DS_ITS ---
History of Present Illness History of Present Illness Date Patient Seen: 05/03/23 Time Patient Seen: 09:38 Chief complaint: SOB Hx Asthma Narrative: Per admitting provider, Pt is 47 yo male former smoker with hx asthma, dyslipidemia presents with difficulty breathing and wheezing x 24 hrs. Symptoms got worse this morning. No fevers or chills. Cough is non-productive. He ran out of his rescue inhaler but used his neb at home this AM without relief. He is compliant with Advair abd Singulair. At baseline poor control with requiring alb inhaler 4-6 times a day. He has never been intubated. He was hospitalized for a day last January for asthma exacerbation while traveling in [place]. He has had mild asthma since childhood but with sig worsening over the past 5 years. 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 Prior to Ed sats in mid 80's. Currently on HFNC. Received alb 20 mg and Solumedrol in ED and had been given dex by medics. Labs wnl except + PCR for entero/rhino virus. Neg COVID PCR. CXR personally reviewed and without infiltrate. He quit smoking in 2019, prev 1 ppd x 20 yrs. Discharge Providers Provider Date of admission: 05/02/23 17:04 Discharge Date: 05/03/23 Primary care physician: Carlos Hackett MD Discharge provider: López Guzman DO Summary Hospital Course Discharge Diagnosis: 1. Acute asthma exacerbation secondary to rhinovirus infection, with acute respiratory failure with hypoxia 2. Dyslipidemia 3. Depression/nxiety Hospital Course: This is a 47 year old male admitted with asthma exacerbation and acute respiratory failure with hypoxia, likely due to rhinoviral infection. He improved quickly with nebulizer treatments and steroids. The following morning after admission he felt improved and was no longer requiring supplemental oxygen. He was discharged home, recommend re-evaluation of chronic controlled medications with PCP after treatment for exacerbation with prednisone. No other changes are recommended at this time. Time Spent with Patient Time spent: Greater than 30 minutes Exam Vital Signs (past 8 hours): - 05/03/23 04:00 05/03/23 07:39 05/03/23 07:50 Temperature 98.6 F Pulse Rate 78 86 95 H Respiratory Rate 16 22 22 Blood Pressure 115/68 Pulse Oximetry 94 91 93 Oxygen Delivery Method Nasal Cannula Nasal Cannula Oxygen Flow Rate 2 2 2 05/03/23 08:00 Temperature 98 F Pulse Rate 95 H Respiratory Rate 16 Blood Pressure 111/64 Pulse Oximetry 94 Oxygen Delivery Method Oxygen Flow Rate 2 Oxygen Delivery Method Nasal Cannula Oxygen Flow Rate 2 Narrative Exam Narrative: Gen: currently after ED treatment alert, comfortable on room air. HEENT: anicteric Neck: no enlarged LN Lungs: able to speak full sentences, no wheezing rhnochi or rales. CV: regular, no murmur Abd: soft, no HSM Ext: no edema Neuro: mentating well, speech and affect nl Objective Labs 05/02/23 15:30 05/02/23 15:30 Labs: Laboratory Results - last 24 hr 05/02/23 05/02/23 13:10 15:30 WBC 7.5 RBC 4.20 L Hgb 13.0 L Hct 37.7 L MCV 89.7 MCH 30.9 MCHC 34.5 RDW 14.5 Plt Count 226 Neut % (Auto) 92.0 H Lymph % (Auto) 3.6 L Mclennan % (Auto) 3.7 Eos % (Auto) 0.1 L Baso % (Auto) 0.6 Neut # (Auto) 6900 Lymph # (Auto) 300 L Mclennan # (Auto) 300 Eos # (Auto) 0 Baso # (Auto) 0 Sodium 137 Potassium 3.4 Chloride 101 Carbon Dioxide 23 BUN 16 Creatinine 0.68 Estimated GFR > 60 BUN/Creatinine Ratio 23.5 H Glucose 130 H Calcium 9.3 Total Bilirubin 0.6 AST 44 ALT 43 Alkaline Phosphatase 52 Total Creatine Kinase 282 H Troponin I < 0.012 NT-Pro-B Natriuret Pep 115 Total Protein 7.9 Albumin 4.6 Globulin 3.3 Albumin/Globulin Ratio 1.4 Lipase 41 Chlamy pneumoniae PCR Not detected Adenovirus (PCR) Not detected B.parapertussis DNA PCR Not detected Coronavirus OC43 (PCR) Not detected Coronavirus HKU1 (PCR) Not detected Coronavirus 229E (PCR) Not detected SARS-CoV-2 (PCR) Not detected Coronavirus NL63 (PCR) Not detected Human Metapneumovir PCR Not detected Influenza Type A (PCR) Not detected Influenza Type B (PCR) Not detected M. pneumoniae (PCR) Not detected Parainfluenza 1 (PCR) Not detected Parainfluenza 2 (PCR) Not detected Parainfluenza 3 (PCR) Not detected Parainfluenza 4 (PCR) Not detected RSV (PCR) Not detected Entero/Rhino (PCR) Detected H PFSH Medical History Recurrent cold sores Screening for prostate cancer Screening for lipid disorders Screening for diabetes mellitus Encounter for assessment of STD exposure Former smoker Penile lesion Encounter for general adult medical examination w/o abnormal findings Encounter for smoking cessation counseling Social History household members: none Smoking Status: Former smoker alcohol intake: never Discharge Plan Discharge Plan Patient Disposition: Home Provider Discharge Comment: You were admitted to the hospital with an asthma exacerbation due to rhinovirus. Improved with supportive care and steroids. Continue steroids at home, you can take first dose tomorrow after pharmacies open. New albuterol inhaler prescribed as well. Discharge orders & Medications Prescriptions: New prednisone 20 mg tablet 40 mg PO DAILY 4 Days Qty: 8 0RF albuterol sulfate 90 mcg/actuation HFA aerosol inhaler 2 puff inhalation QID PRN (Reason: shortness of breath or wheezing) Qty: 8.5 0RF Continued escitalopram oxalate 20 mg tablet See Rx Instructions .ROUTE .COMPLEX Qty: 90 0RF Dose Instruction: TAKE ONE TABLET BY MOUTH EVERY DAY Rx Instructions: TAKE ONE TABLET BY MOUTH EVERY DAY Flovent Diskus 100 mcg/actuation blister with device 2 inh inhalation BID Qty: 60 2RF fluticasone propion-salmeterol [Advair Diskus] 250-50 mcg/dose blister with device 1 inh inhalation BID Qty: 60 3RF atorvastatin 10 mg tablet 10 mg PO QPM Qty: 90 0RF albuterol sulfate 90 mcg/actuation HFA aerosol inhaler 2 puff inhalation Q6H PRN (Reason: shortness of breath or wheezing) Qty: 1 0RF albuterol sulfate 5 mg/mL solution for nebulization 5 mg inhalation Q6H PRN (Reason: asthma ) Qty: 100 0RF Rx Instructions: to be used with nebulizer machine montelukast 10 mg tablet 10 mg PO DAILY Qty: 90 3RF Follow up/Referrals: Carlos Hackett MD [Primary Care Provider] - Visit Report/Discharge Packet Instructions: Prednisone Stand Alone Forms: Patient Portal/API, Stroke Signs & Symptoms Discharge Data Primary Care Provider: Carlos Hackett Attending Provider: Mikie Walter Admit Date/Time: 05/02/23 17:04
--- NOTE | 2023-05-03 10:46 | CM.DANOTE ---
DCP Assessment Note Pt is a 47yo M here following asthma exacerbation and resp failure. PCP Carlos Solisestancia and self pay BUSINESS ASSISTANT reviewed EMR. Per provider, no O2 at baseline on some O2 now. However, can dc this morning with a prescription for Albuterol. From provider, pt making arrangements for 3pm ferry back to [place], no priority pass needed. From RN, likely no CM needs. Pt indep in room. Plan: home with family support today, no CM needs identified per chart review, RN report, and provider report. CM team will continue to follow as needed. LILY Tam Discharge Planning/Care Management Advanced directive, confirm from FAMILY Start: 05/02/23 18:14 Freq: Q24H Status: Active Protocol: Document 05/02/23 18:14 EM (Rec: 05/02/23 18:14 EM [id number]) Advance Directive, confirm on record Time 18:14 Person contacted Self Copy received No CM Discharge Assessment Start: 05/03/23 10:45 Freq: Status: Active Protocol: Document 05/03/23 10:45 SL (Rec: 05/03/23 10:46 SL [id number]) Discharge Planning Assessment Assigned [employer] LILY Swanson Advance Directives? No Advance Directives on File No History Provided By Medical Record Household Members none Independent with ADL's Yes Is patient alert and oriented? Yes Barriers to Discharge No Discharge Plan Home Whiteboard Updated in Patient Room with No name and ext. # of [employer] Review Status In Process Next Review Type Continued Stay Review
--- NOTE | 2023-05-03 14:24 | PC.NURSE ---
Discharge Note Patient A&O, VSS, RA, no complaints of pain/discomfort. Discharge packet reviewed with patient, all questions/concerns addressed. PIV discontinued. Patient able to dress self and pack all belongings. Patient taken down via wheelchair to POV.
== END 2023-05-03 14:00 | disposition home or self-care (01) ==
LOC: ED 17:04 → AC 17:06
PROVIDERS: Admitting Provider Internal Medicine; Emergency Provider Emergency Medicine; PCP Family Medicine; Referring Provider Emergency Medicine; Visit Provider Internal Medicine
DX: J96.01 Acute respiratory failure with hypoxia (principal); B34.8 Other viral infections of unspecified site; J45.901 Unspecified asthma with (acute) exacerbation; F32.A Depression, unspecified; F41.9 Anxiety disorder, unspecified; E78.5 Hyperlipidemia, unspecified; Z87.891 Personal history of nicotine dependence
CPT/HCPCS: 71045; 80053; 82550; 83690; 83880; 84484; 85025; 87633; 94150; 94640; 94762; 96361; 96372; 96374; 99285; G0378; A9270; J1650; J2930; J3475; J7613

== ENCOUNTER → 2023-12-14 08:38 | Outpatient (CLI) | payer OTHER, SELFPAY ==
[2023-05-02 18:08] VITALS: BMI 27.2
[2023-12-14 09:52] LABS: Add Manual Diff / Slide Review NO; Basophils Absolute Auto 100 /uL (0-100); Eosinophils Absolute Auto 600 /uL (0-450); Eosinophils Percent Auto 7.5 % (2-4); Hemoglobin 13.9 g/dL (13.5-17.5); Lymphocytes Absolute Auto 2000 /uL (1100-4500); Lymphocytes Percent Auto 24.6 % (25-40); Mean Corpuscular HGB Conc 34.7 % (30-36); Mean Corpuscular Hemoglobin 32.6 PG (26-34); Mean Corpuscular Volume 93.9 fL (80-100); Monocytes Absolute Auto 500 /uL (0-900); Monocytes Percent Auto 6.3 % (3-14); Neutrophils Absolute Auto 4900 /uL (1500-7000); Neutrophils Percent Auto 60.6 % (50-75); Platelet Count 329 X10^3/uL (150-400); Red Blood Cell Count 4.26 X10^6/uL (4.5-5.9); Red Cell Distribution Width 13.4 % (11.6-14.8); White Blood Cell Count 8.1 X10^3/uL (4.5-11.0)
== END ==
PROVIDERS: PCP Physician Assistant Medical; Referring Provider Internal Medicine Critical Care Medicine; Visit Provider Internal Medicine Critical Care Medicine
DX: J45.909 Unspecified asthma, uncomplicated (principal)
CPT/HCPCS: 36415; 82785; 85025; 86003

== ENCOUNTER → 2024-01-03 09:58 | Outpatient (CLI) | payer BC, SELFPAY ==
[2023-05-02 18:08] VITALS: BMI 27.2
== END ==
PROVIDERS: PCP Physician Assistant Medical; Referring Provider Internal Medicine Critical Care Medicine; Visit Provider Internal Medicine Critical Care Medicine
DX: J45.909 Unspecified asthma, uncomplicated (principal); Z87.891 Personal history of nicotine dependence
CPT/HCPCS: 94060; 94726; 94729

== ENCOUNTER → 2024-08-31 09:28 | Outpatient (CLI) | payer BC, SELFPAY ==
[2024-08-04 15:53] VITALS: BMI 27.2
[2024-08-31 19:57] LABS: Add Manual Diff / Slide Review NO; Basophils Absolute Auto 100 /uL (0-100); Basophils Percent Auto 1.3 % (0-2); Eosinophils Absolute Auto 500 /uL (0-450); Eosinophils Percent Auto 6.7 % (2-4); Hematocrit 41.5 % (41-53); Hemoglobin 14.2 g/dL (13.5-17.5); Lymphocytes Absolute Auto 2100 /uL (1100-4500); Lymphocytes Percent Auto 29.4 % (25-40); Mean Corpuscular HGB Conc 34.3 % (30-36); Mean Corpuscular Hemoglobin 30.6 PG (26-34); Mean Corpuscular Volume 89.4 fL (80-100); Monocytes Absolute Auto 400 /uL (0-900); Monocytes Percent Auto 5.8 % (3-14); Neutrophils Absolute Auto 4000 /uL (1500-7000); Neutrophils Percent Auto 56.8 % (50-75); Platelet Count 365 X10^3/uL (150-400); Red Blood Cell Count 4.65 X10^6/uL (4.5-5.9); Red Cell Distribution Width 13.3 % (11.6-14.8); White Blood Cell Count 7.1 X10^3/uL (4.5-11.0)
[2024-08-31 20:05] LABS: Alanine Aminotransferase 30 IU/L (<50); Albumin 4.6 g/dL (3.5-5.0); Albumin Globulin Ratio 1.6 (1.0-2.8); Alkaline Phosphatase 63 U/L (38-126); Aspartate Aminotransferase 30 IU/L (17-59); BUN Creatinine Ratio 15.4 (6-22); Bilirubin Total 0.6 mg/dL (0.2-1.3); Bilirubin Unconjugated 0.2 mg/dL (0.0-1.1); Blood Urea Nitrogen 14 mg/dL (9-20); Calcium 9.7 mg/dL (8.4-10.2); Carbon Dioxide 28 mmol/L (22-32); Chloride 103 mmol/L (98-107); Cholesterol 209 mg/dL (140-199); Estimated Glomerular Filt Rate > 60 mL/min (>60); Globulin 2.9 g/dL (1.7-4.1); Glucose 115 mg/dL (70-99); HDL Cholesterol 46 mg/dL (40-60); HEMOLYSIS < 15 (0-50); LDL Cholesterol Calculated 118 mg/dL (<100); Potassium 4.4 mmol/L (3.4-5.1); Sodium 140 mmol/L (137-145); Total Protein 7.5 g/dL (6.3-8.2); Triglycerides 226 mg/dL (35-150)
[2024-08-31 20:35] LABS: Prostate Specific Antigen Scrn 0.235 ng/mL (0.1-4.0)
== END ==
PROVIDERS: PCP Physician Assistant Medical; Visit Provider Physician Assistant Medical
DX: Z12.5 Encounter for screening for malignant neoplasm of prostate (principal); D64.9 Anemia, unspecified; E78.2 Mixed hyperlipidemia
CPT/HCPCS: 80053; 80061; 80076; 85025; G0103

== ENCOUNTER → 2025-01-23 08:50 | Outpatient (CLI) | payer BC, SELFPAY ==
[2024-08-04 15:53] VITALS: BMI 27.2
[2025-01-23 19:33] LABS: Alanine Aminotransferase 35 IU/L (<50); Albumin 4.6 g/dL (3.5-5.0); Albumin Globulin Ratio 1.6 (1.0-2.8); Alkaline Phosphatase 64 U/L (38-126); Blood Urea Nitrogen 18 mg/dL (9-20); Calcium 9.7 mg/dL (8.4-10.2); Carbon Dioxide 28 mmol/L (22-32); Chloride 105 mmol/L (98-107); Cholesterol 220 mg/dL (140-199); Estimated Glomerular Filt Rate > 60 mL/min (>60); Globulin 2.8 g/dL (1.7-4.1); Glucose 116 mg/dL (70-99); HDL Cholesterol 57 mg/dL (40-60); HEMOLYSIS < 15 (0-50); Potassium 4.5 mmol/L (3.4-5.1); Sodium 140 mmol/L (137-145); Total Protein 7.4 g/dL (6.3-8.2); Triglycerides 277 mg/dL (35-150)
[2025-01-23 19:58] LABS: Hemoglobin A1C% w Est Avg Glu 5.7 % (4.0-6.0)
== END ==
PROVIDERS: PCP Physician Assistant Medical; Visit Provider Physician Assistant Medical
DX: E78.1 Pure hyperglyceridemia (principal); E78.2 Mixed hyperlipidemia; R73.9 Hyperglycemia, unspecified
CPT/HCPCS: 80053; 80061; 83036